=== PATIENT | male | born 1960 | race Caucasian/White ===

== ENCOUNTER 2017-06-22 10:25 | Emergency (ER) | payer BC ==
[2017-06-22] MEDS ORDERED: Ondansetron INJ* 2 MG/ML VIAL IV ONE (11:21)
[2017-06-22] MEDS ORDERED: NS 0.9% 1000 ML* 1,000 ML IV ONE (11:21)
[2017-06-22] MEDS ORDERED: Morphine INJ* 4 MG/ML 1 ML CARPUJECT IV ONE ×2 (11:21→13:12)
[2017-06-22] MEDS ORDERED: Morphine INJ* 2 MG/ML 1 ML CARPUJECT ONE (11:31)
[2017-06-22 11:47] LABS: Hematocrit 44 % (42-52); White Blood Count 6.3 10^3/ul (3.5-10.8)
[2017-06-22 11:48] LABS: Hemoglobin 14.9 g/dl (14.0-18.0); Mean Corpuscular HGB Conc 34 g/dl (31-36); Mean Corpuscular Hemoglobin 31 pg (27-31); Mean Corpuscular Volume 90 fL (80-94); Mean Platelet Volume 9 um3 (7.4-10.4); Red Blood Count 4.87 10^6/ul (4.0-5.4); Red Cell Distribution Width 14 % (10.5-15)
[2017-06-22 11:49] LABS: Comments Flag Yes
[2017-06-22 11:50] LABS: Add Diff/Slide Review? Slide Review Added
[2017-06-22 11:52] LABS: Urine Bacteria Absent (Absent); Urine Bilirubin Negative (Negative); Urine Glucose Negative (Negative); Urine Nitrite Negative (Negative)
[2017-06-22 12:06] LABS: ALT 25 U/L (7-52); Albumin 4.1 g/dL (3.2-5.2); Alkaline Phosphatase 31 U/L (34-104); BUN/Creatinine Ratio 12.9 (8-20); Blood Urea Nitrogen 17 mg/dL (6-24); C Reactive Protein 32.06 mg/L (< 5.00); CO2 Carbon Dioxide 23 mmol/L (22-32); Calcium 9.4 mg/dL (8.6-10.3); Chloride 104 mmol/L (101-111); Creatine Kinase 237 U/L (10-223); EGFR African American 71.9 (>60); EGFR Non-African American 55.9 (>60); Globulin 3.3 g/dL (2-4); Glucose 99 mg/dL (70-100); Lipase 45 U/L (11.0-82.0); Sodium 133 mmol/L (133-145); Total Protein 7.4 g/dL (6.4-8.9)
--- NOTE | 2017-06-22 12:17 | RAD ---
INDICATION: RIGHT flank pain. History of urolithiasis. Passed a kidney stone a few days ago. COMPARISON: Report of June 23, 2008 CT. TECHNIQUE: Multidetector CT images were obtained from the lung bases to the ischial tuberosities. Evaluation of the viscera is limited without IV contrast. Multiplanar reformation. REPORT: Minimal bibasilar subsegmental atelectasis. Unremarkable unenhanced liver, gallbladder, pancreas, spleen. Negative for CT abnormality of the upper GI or small bowel. Appendix not visualized consistent with surgical history. Moderately severe colonic diverticulosis most marked at the sigmoid colon without findings of acute diverticulitis. Negative for ascites or free air. Small fat-containing umbilical hernia without inflammatory change. Normal RIGHT adrenal gland. 1.5 cm hypodense nodule LEFT adrenal gland is consistent with a benign lipid rich adenoma. Moderate RIGHT hydronephrosis is traced to a 0.5 cm far distal RIGHT ureteral stone approximate 0.8 cm from the ureterovesicular junction. Associated mild RIGHT perinephric and periureteral inflammatory stranding. 0.6 cm CM LEFT upper pole calyceal stone and smaller lower pole calyceal stone without LEFT hydronephrosis. Unremarkable LEFT ureter. Unremarkable partially distended urinary bladder. Symmetric seminal vesicles. Negative for lymphadenopathy. Normal diameter abdominal aorta and iliac arteries. Physiologic distention of the IVC. Polyarticular degenerative arthropathy. Negative for suspicious focal osseous lesions. IMPRESSION: Moderate RIGHT hydronephrosis is traced to a 0.5 cm far distal RIGHT ureteral stone approximate 0.8 cm from the ureterovesicular junction. Nonobstructing LEFT kidney calyceal stones.
[2017-06-22] MEDS ORDERED: Tamsulosin CAP* 0.4 MG PO ONE (13:13)
[2017-06-22 13:43] LABS: Anion Gap 6 mmol/L (2-11)
[2017-06-22 13:54] VITALS: BP 105/62
--- NOTE | 2017-06-22 15:32 | ED ---
Mary Rowley SooYoung, scribed for Chad Fields MD on 06/22/17 at 1132 . GI/ HPI - HPI Summary HPI Summary: A 56 y/o M presents to ED with c/o worsening, R flank pain onset last night. Pain radiates to his groin and rated as 8 out of 10. He notes he passed a stone earlier this week. He's unsure if there's another stone or if there's an infection. Denies n/v, dysuria, frequency. PMHx: kidney stones. He notes 5 years , spending weeks in ICU because his kidneys shut down. - History of Current Complaint Chief Complaint: EDFlankPain Time Seen by Provider: 06/22/17 11:05 Stated Complaint: FLANK AND GROIN PAIN Hx Obtained From: Patient Onset/Duration: Started Hours Ago, Still Present Timing: Constant Severity: Moderate Current Severity: Severe Pain Intensity: 9 - out of 10 Location of Pain: Flank - R Associated Signs and Symptoms: Positive: Other: - neg: frequency. Negative: Nausea, Vomiting, Dysuria - Allergy/Home Medications Allergies/Adverse Reactions: Allergies Allergy/AdvReac Type Severity Reaction Status Date / Time NSAIDs AdvReac SHUT Verified 11/30/14 17:43 KIDNEYS DOWN PMH/Surg Hx/FS Hx/Imm Hx Previously Healthy: No History: Reports: Hx Kidney Stones Opthamlomology History: Denies: Hx Eye Prosthesis, Hx Legally Blind - Surgical History Surgery Procedure, Year, and Place: APPENDECTOMY Infectious Disease History: No Infectious Disease History: Denies: Traveled Outside the [place] in Last 30 Days - Family History Known Family History: Negative: Cardiac Disease, Hypertension, Diabetes - Social History Occupation: Employed Full-time Lives: With Family Alcohol Use: Occasionally Hx Substance Use: No Substance Use Type: Reports: None Hx Tobacco Use: Yes Smoking Status (MU): Former Smoker Review of Systems Negative: Vomiting, Nausea Positive: flank pain - R, radiating to groin. Negative: dysuria, frequency All Other Systems Reviewed And Are Negative: Yes Physical Exam - Summary Physical Exam Summary: VITAL SIGNS: Reviewed. GENERAL: Patient is a well-developed and nourished male who is lying comfortable in the stretcher. Pt appears dehydrated. Patient is not in any acute respiratory distress. HEAD AND FACE: Normocephalic and atraumatic. EYES: PERRLA, EOMI x 2, No injected conjunctiva. EARS: Hearing grossly intact. Ear canals and tympanic membranes are WNL. MOUTH: Oropharynx within normal limits. NECK: Supple, trachea is midline, no adenopathy, no JVD. CHEST: Symmetric, no tenderness at palpation LUNGS: Clear to auscultation bilaterally. No wheezing or crackles. CVS: RRR, S1 and S2 present, no murmurs or gallops appreciated. ABDOMEN: Soft. R CVA tenderness and mild R flank tenderness. No signs of distention. Positive bowel sounds. No rebound, no guarding, and no masses palpated. No abdominal bruit or pulsations. EXTREMITIES: FROM in all major joints, no edema, no cyanosis or clubbing. NEURO: Alert and oriented x 3. No acute neurological deficits. Speech is normal. SKIN: Dry and warm Triage Information Reviewed: Yes Vital Signs On Initial Exam: Initial Vitals Temp Pulse Resp BP Pulse Ox 98.2 F 68 18 145/90 98 06/22/17 10:34 06/22/17 10:34 06/22/17 10:34 06/22/17 10:34 06/22/17 10:34 Vital Signs Reviewed: Yes - Pennock Coma Scale Coma Scale Total: 15 Diagnostics - Vital Signs Vital Signs Temp Pulse Resp BP Pulse Ox 06/22/17 11:00 61 129/61 97 06/22/17 10:59 71 97 06/22/17 10:58 127/70 06/22/17 10:34 98.2 F 68 18 145/90 98 - Laboratory Lab Results: Lab Results 06/22/17 06/22/17 06/22/17 Range/Units 11:35 11:35 11:35 WBC 6.3 (3.5-10.8) 10^3/ul RBC 4.87 (4.0-5.4) 10^6/ul Hgb 14.9 (14.0-18.0) g/dl Hct 44 (42-52) % MCV 90 (80-94) fL MCH 31 (27-31) pg MCHC 34 (31-36) g/dl RDW 14 (10.5-15) % Plt Count 209 (150-450) 10^3/ul MPV 9 (7.4-10.4) um3 Neut % (Auto) 68.6 (38-83) % Lymph % (Auto) 18.1 L (25-47) % Harlan % (Auto) 9.9 H (1-9) % Eos % (Auto) 2.3 (0-6) % Baso % (Auto) 1.1 (0-2) % Absolute Neuts (auto) 4.3 (1.5-7.7) 10^3/ul Absolute Lymphs (auto) 1.1 (1.0-4.8) 10^3/ul Absolute Monos (auto) 0.6 (0-0.8) 10^3/ul Absolute Eos (auto) 0.1 (0-0.6) 10^3/ul Absolute Basos (auto) 0.1 (0-0.2) 10^3/ul Absolute Nucleated RBC 0 10^3/ul Nucleated RBC % 0 Diff Slide Review Cancelled Sodium 133 (133-145) mmol/L Potassium TNP Chloride 104 (101-111) mmol/L Carbon Dioxide 23 (22-32) mmol/L Anion Gap 6 (2-11) mmol/L BUN 17 (6-24) mg/dL Creatinine 1.32 H (0.67-1.17) mg/dL Est GFR ( Amer) 71.9 (>60) Est GFR (Non-Af Amer) 55.9 (>60) BUN/Creatinine Ratio 12.9 (8-20) Glucose 99 (70-100) mg/dL Lactic Acid 0.7 (0.5-2.0) mmol/L Calcium 9.4 (8.6-10.3) mg/dL Total Bilirubin 0.50 (0.2-1.0) mg/dL AST TNP ALT 25 (7-52) U/L Alkaline Phosphatase 31 L (34-104) U/L Total Creatine Kinase 237 H (10-223) U/L C-Reactive Protein 32.06 H (< 5.00) mg/L Total Protein 7.4 (6.4-8.9) g/dL Albumin 4.1 (3.2-5.2) g/dL Globulin 3.3 (2-4) g/dL Albumin/Globulin Ratio 1.2 (1-3) Lipase 45 (11.0-82.0) U/L Urine Color Urine Appearance Urine pH (5-9) Ur Specific [place] (1.010-1.030) Urine Protein (Negative) Urine Ketones (Negative) Urine Blood (Negative) Urine Nitrate (Negative) Urine Bilirubin (Negative) Urine Urobilinogen (Negative) Ur Leukocyte Esterase (Negative) Urine WBC (Auto) (Absent) Urine RBC (Auto) (Absent) Urine Bacteria (Absent) Urine Glucose (Negative) 06/22/17 Range/Units 11:35 WBC (3.5-10.8) 10^3/ul RBC (4.0-5.4) 10^6/ul Hgb (14.0-18.0) g/dl Hct (42-52) % MCV (80-94) fL MCH (27-31) pg MCHC (31-36) g/dl RDW (10.5-15) % Plt Count (150-450) 10^3/ul MPV (7.4-10.4) um3 Neut % (Auto) (38-83) % Lymph % (Auto) (25-47) % Harlan % (Auto) (1-9) % Eos % (Auto) (0-6) % Baso % (Auto) (0-2) % Absolute Neuts (auto) (1.5-7.7) 10^3/ul Absolute Lymphs (auto) (1.0-4.8) 10^3/ul Absolute Monos (auto) (0-0.8) 10^3/ul Absolute Eos (auto) (0-0.6) 10^3/ul Absolute Basos (auto) (0-0.2) 10^3/ul Absolute Nucleated RBC 10^3/ul Nucleated RBC % Diff Slide Review Sodium (133-145) mmol/L Potassium Chloride (101-111) mmol/L Carbon Dioxide (22-32) mmol/L Anion Gap (2-11) mmol/L BUN (6-24) mg/dL Creatinine (0.67-1.17) mg/dL Est GFR ( Amer) (>60) Est GFR (Non-Af Amer) (>60) BUN/Creatinine Ratio (8-20) Glucose (70-100) mg/dL Lactic Acid (0.5-2.0) mmol/L Calcium (8.6-10.3) mg/dL Total Bilirubin (0.2-1.0) mg/dL AST ALT (7-52) U/L Alkaline Phosphatase (34-104) U/L Total Creatine Kinase (10-223) U/L C-Reactive Protein (< 5.00) mg/L Total Protein (6.4-8.9) g/dL Albumin (3.2-5.2) g/dL Globulin (2-4) g/dL Albumin/Globulin Ratio (1-3) Lipase (11.0-82.0) U/L Urine Color Yellow Urine Appearance Clear Urine pH 6.0 (5-9) Ur Specific [place] 1.010 (1.010-1.030) Urine Protein Negative (Negative) Urine Ketones Negative (Negative) Urine Blood 1+ H (Negative) Urine Nitrate Negative (Negative) Urine Bilirubin Negative (Negative) Urine Urobilinogen Negative (Negative) Ur Leukocyte Esterase Negative (Negative) Urine WBC (Auto) Trace(0-5/hpf) (Absent) Urine RBC (Auto) Trace(0-2/hpf) (Absent) Urine Bacteria Absent (Absent) Urine Glucose Negative (Negative) Result Diagrams: 06/22/17 11:35 06/22/17 13:55 Lab Statement: Any lab studies that have been ordered have been reviewed, and results considered in the medical decision making process. - CT ABD/PEL CT CT Interpretation: Positive (See Comments) - IMPRESSION: Moderate RIGHT hydronephrosis is traced to a 0.5 cm far distal RIGHT ureteral stone approximate 0.8 cm from the ureterovesicular junction. Nonobstructing LEFT kidney calyceal stones. ED physician has reviewed this radiology report and agrees. CT Interpretation Completed By: Radiologist Re-Evaluation - Re-Evaluation 1 Re-Evaluation Time: 13:36 Change: Improved Comment: Discussing results and plan to dispo with pt. Pt voiced understanding. Pain has improved. GIGU Course/Dx - Course Course Of Treatment: A 56 y/o M presents to ED with c/o worsening, R flank pain onset last night. Pain radiates to his groin and rated as 8 out of 10. He notes he passed a stone earlier this week. He's unsure if there's another stone or if there's an infection. Denies n/v, dysuria, frequency. PMHx: kidney stones. He notes 5 years, spending weeks in ICU because his kidneys shut down. ABD/PEL CT shows "Moderate RIGHT hydronephrosis is traced to a 0.5 cm far distal RIGHT ureteral stone approximate 0.8 cm from the ureterovesicular junction. Nonobstructing LEFT kidney calyceal stones.". Pt given morphine, zofran, fluids in ED.'. Will d/c home with percocetand Flomax. Assessment/Plan: In the ED course an IV access was obtained. Patient was placed in a sash installer. Patient was started with IV fluids. He was started in Morphine and Zofran for pain and nausea. Labs within normal limits except for creatinine of 1.32, CRP 32 and CPK 237. Abdominal and pelvic CT IMPRESSION: Moderate RIGHT hydronephrosis is traced to a 0.5 cm far distal RIGHT ureteral stone approximate 0.8 cm from the ureterovesicular junction. Nonobstructing LEFT kidney calyceal stones. Patient continue to have some pain and he was given another dose of Morphine and Flomax. After second dose symptoms significantly improved. He will f/u with Dr. Arce at [facility] in the next couple days. I discussed all the findings and test results with the patient. Patient was instructed to return to the emergency room immediately if any of the symptoms return or worsens. Plan of care was discussed with the patient and understands and agrees. All questions were answered at patient satisfaction. There were no further complaints or concerns. Lung exam before discharge: CTA B/L. Good air exchange. No wheezing or crackles heard. CVS: S1 and S2 present. No murmurs appreciated. Patient is alert and oriented x 3. Patient is hemodynamically stable. Patient will be discharged home with follow up PCP and urologist in the next 2-3 days - Diagnoses Differential Diagnoses - Male: Diverticulitis, Bowel Obstruction, Pelvic Inflammatory Disease, Pneumonia, Ureteral Calculi, Urinary Tract Infection Provider Diagnoses: Kidney stones Discharge - Discharge Plan Condition: Stable Disposition: HOME Prescriptions: Tamsulosin HCl [Flomax] 0.4 mg PO ONCE #10 cap oxyCODONE/Acetamin 5/325 MG* [Percocet 5/325 TAB*] 1 tab PO Q4H PRN #15 tab MDD 4 PRN Reason: Pain Patient Education Materials: Tamsulosin (By mouth), Oxycodone/Acetaminophen ( By mouth), Kidney Stones (ED) Referrals: Nilesh Bermudez MD [Primary Care Provider] - 3 Days Additional Instructions: Follow up with your primary care provider in the next 3 days. Please return to the ED if you experience new or worsening symptoms. The documentation as recorded by the Mary ojeda SooYoung accurately reflects the service I personally performed and the decisions made by me, Chad Fields MD.
== END 2017-06-22 13:59 | disposition home or self-care (01) ==
LOC: ED 10:25
DX: N20.0 Calculus of kidney (principal); Z87.891 Personal history of nicotine dependence; R10.84 Generalized abdominal pain
CPT/HCPCS: 36415; 74176; 80053; 81003; 81015; 82550; 83605; 83690; 85025; 86140; 96374; 96375; 99283; J2270; J2405